=== PATIENT | female | born 1950 | race Caucasian/White ===

== ENCOUNTER → 2017-01-01 | Outpatient (CLI) | payer MEDICARE, MEDICAID | LOC: GT 08:29 | PROVIDERS: ATTEND Internal Medicine | DX: R27.8 Other lack of coordination (principal); E63.9 Nutritional deficiency, unspecified; G81.02 Flaccid hemiplegia affecting left dominant side; M62.50 Muscle wasting and atrophy, not elsewhere classified, unspecified site ==

== ENCOUNTER → 2017-01-13 | Outpatient (CLI) | payer MEDICARE, MEDICAID | END | disposition home or self-care (01) | LOC: GT 08:25 | PROVIDERS: ATTEND Internal Medicine | DX: R27.9 Unspecified lack of coordination (principal); D50.8 Other iron deficiency anemias; E63.9 Nutritional deficiency, unspecified ==

== ENCOUNTER → 2017-04-14 | Outpatient (CLI) | payer MEDICARE, MEDICAID | END | disposition home or self-care (01) | LOC: GT 08:23 | PROVIDERS: ATTEND Internal Medicine | DX: I69.998 Other sequelae following unspecified cerebrovascular disease (principal); R27.9 Unspecified lack of coordination; E08.65 Diabetes mellitus due to underlying condition with hyperglycemia; D50.9 Iron deficiency anemia, unspecified; E63.9 Nutritional deficiency, unspecified; E78.5 Hyperlipidemia, unspecified | CPT/HCPCS: 36415; 80053; 80061; 83036; 84443; 85025; P9603 ==

== ENCOUNTER → 2017-07-14 | Outpatient (CLI) | payer MEDICARE, MEDICAID | LOC: GT 05:40 | PROVIDERS: ATTEND Internal Medicine | DX: D50.8 Other iron deficiency anemias (principal); E08.65 Diabetes mellitus due to underlying condition with hyperglycemia; E78.5 Hyperlipidemia, unspecified; I10 Essential (primary) hypertension ==

== ENCOUNTER → 2017-10-06 | Outpatient (CLI) | payer MEDICARE, MEDICAID | END | disposition home or self-care (01) | LOC: GT 06:17 | PROVIDERS: ATTEND Internal Medicine | DX: I63.9 Cerebral infarction, unspecified (principal); I10 Essential (primary) hypertension; E08.65 Diabetes mellitus due to underlying condition with hyperglycemia ==

== ENCOUNTER → 2017-10-10 | Outpatient (CLI) | payer MEDICARE, MEDICAID | END | disposition home or self-care (01) | LOC: GT 09:39 | PROVIDERS: ATTEND Internal Medicine | DX: J11.2 Influenza due to unidentified influenza virus with gastrointestinal manifestations (principal) ==

== ENCOUNTER 2018-02-02 12:52 | Emergency (ER) | payer MEDICARE, MEDICAID ==
--- NOTE | 2018-02-02 13:59 | RAD ---
EXAM DESCRIPTION: Chest,1 View CLINICAL HISTORY: NG PLACEMENT COMPARISON: None available FINDINGS: Single AP view of the lung bases and upper abdomen shows an NG tube with its distal side port and tip in the proximal/mid stomach. Is a large amount of gas scattered throughout the colon. No dilated small bowel loops are identified. The lung bases are unremarkable. The heart is at the upper limits of normal size. IMPRESSION: NG tube in place with its distal tip and side-port in the proximal/mid stomach. Electronically signed by: Diony Eid MD 02/02/2018 1:58 PM CDT
--- NOTE | 2018-02-02 15:03 | ED.PDOC ---
History of Present Illness - General Chief Complaint: Abdominal Pain Stated Complaint: Abd distention Time Seen by Provider: 02/02/18 13:16 Source: patient Exam Limitations: no limitations - History of Present Illness Initial Comments: Patient presents with abdominal pain and bloating since this morning. She says she had the pain yesterday but the bloating and pain worsened this morning. She has had a normal appetite and denies N/V. She says that she has had diarrhea. Denies urinary symptoms. The patient is a poor historian and cannot describe the quality of the pain but indicates with her hands that it is generalized. No other complaints. Timing/Duration: other - on day Severity: moderate Improving Factors: nothing Worsening Factors: nothing Associated Symptoms: other - as in HPI Allergies/Adverse Reactions: Allergies NO KNOWN ALLERGY Allergy (Verified 09/08/15 05:44) Home Medications: Ambulatory Orders cefTRIAXone SODIUM [Rocephin] 1 gm IV DAILY #6 vial 02/02/18 Review of Systems - Review of Systems Constitutional: States: no symptoms reported EENTM: States: no symptoms reported Respiratory: States: no symptoms reported Cardiology: States: no symptoms reported Gastrointestinal/Abdominal: States: see HPI Genitourinary: States: no symptoms reported Musculoskeletal: States: no symptoms reported Skin: States: no symptoms reported Neurological: States: no symptoms reported Endocrine: States: no symptoms reported Hematologic/Lymphatic: States: no symptoms reported Past Medical History (General) - Patient Medical History Hx Seizures: No 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 Pt c/o slight abdominal discomfort. 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 nml as tested, no motor/sensory deficits, alert Skin Exam: normal color Lymphatic: no adenopathy Progress - Progress Progress: 02/02/18 18:11 Laboratory Tests 02/02/18 02/02/18 02/02/18 13:40 13:40 13:40 WBC 11.7 H RBC 5.35 Hgb 14.5 Hct 43.3 MCV 80.9 L MCH 27.1 MCHC 33.6 RDW 15.7 H Plt Count 187 MPV 8.0 Absolute Neuts (auto) 10.20 H Absolute Lymphs (auto) 0.90 L Absolute Monos (auto) 0.50 Absolute Eos (auto) 0.10 Absolute Basos (auto) 0.10 Neutrophils % 86.6 H Lymphocytes % 7.7 L Monocytes % 4.1 Eosinophils % 0.7 L Basophils % 0.9 Sodium 135 Potassium 3.5 L Chloride 99 L Carbon Dioxide 25 Anion Gap 14.5 BUN 23 H Creatinine 0.56 L BUN/Creatinine Ratio 41.1 H Random Glucose 185 H Serum Osmolality 278.6 Lactic Acid Calcium 9.6 Total Bilirubin 0.9 AST 27 ALT 23 Alkaline Phosphatase 104 Serum Total Protein 8.3 H Albumin 4.2 Globulin 4.1 H Albumin/Globulin Ratio 1.0 L Lipase 33 Urine Color Urine Appearance Urine pH Ur Specific [place] Urine Protein Urine Glucose (UA) Urine Ketones Urine Blood Urine Nitrite Urine Bilirubin Urine Urobilinogen Ur Leukocyte Esterase Urine RBC Urine WBC Ur Epithelial Cells Urine Bacteria Stool Occult Blood 02/02/18 02/02/18 02/02/18 14:52 15:41 17:54 WBC RBC Hgb Hct MCV MCH MCHC RDW Plt Count MPV Absolute Neuts (auto) Absolute Lymphs (auto) Absolute Monos (auto) Absolute Eos (auto) Absolute Basos (auto) Neutrophils % Lymphocytes % Monocytes % Eosinophils % Basophils % Sodium Potassium Chloride Carbon Dioxide Anion Gap BUN Creatinine BUN/Creatinine Ratio Random Glucose Serum Osmolality Lactic Acid 0.7 Calcium Total Bilirubin AST ALT Alkaline Phosphatase Serum Total Protein Albumin Globulin Albumin/Globulin Ratio Lipase Urine Color Yellow Urine Appearance Sl cloudy Urine pH 5.0 Ur Specific [place] >= 1.030 Urine Protein 30 Urine Glucose (UA) Negative Urine Ketones Trace Urine Blood Trace-intact H Urine Nitrite Positive H Urine Bilirubin Negative Urine Urobilinogen 0.2 Ur Leukocyte Esterase Small H Urine RBC 1-3 Urine WBC Tntc H Ur Epithelial Cells 1-3 Urine Bacteria 4+ H Stool Occult Blood Negative UA positive for urinary tract infection. CT showe mildly distended colon but no acute disease. NG tube was started upon arrival and there was mild to moderate symptomatic relief by patient report. Manual digital disimpaction attempt was made but there was no hard feces upon digital exam. There was no obstructing masses. A moderate amount of liquid feces was expressed and it tested negative for occult blood. Patient received Rocephin 1 gram IV x one for the UTI. There is a possiblity of developing urosepis with the 11.7 wbc and 86.7% neutrophils. The UTI, therefore, will be treated with Rocephin 1 gram IV qd x 6 days. Follow up with GI for colonoscopy instructed. Questions were elicited and answered. Patient and her family voiced understanding and agreement with the plan. Departure - Departure Clinical Impression: Abdominal pain, UTI (urinary tract infection) Disposition: Discharge to Home or Self Care Condition: Good Departure Forms: ED Discharge - Pt. Copy, Patient Portal Self Enrollment Instructions: DI for Abdominal Pain-Adult Diet: resume usual diet Activity: as per physical therapy Referrals: ZEENAT YOUNG [Primary Care Provider] - 1-2 Weeks Prescriptions: cefTRIAXone SODIUM [Rocephin] 1 gm IV DAILY #6 vial Home Medications: Ambulatory Orders cefTRIAXone SODIUM [Rocephin] 1 gm IV DAILY #6 vial 02/02/18 Additional Instructions: You will need to get a colonoscopy in the next two weeks. Rocephin 1 gram IV at the retirement every day as prescribed for a urinary tract infection. Return to the [facility] for increasing pain or fever.
[2018-02-02] MEDS ORDERED: cefTRIAXone SODIUM 1 GM in SODIUM CHL 0.9% 50ML MIN-BAG+ 50 ML IVPB ONE (15:14)
[2018-02-02] MEDS ORDERED: cefTRIAXone SODIUM 1 GM VIAL ONE (15:21)
[2018-02-02] MEDS ORDERED: SODIUM CHL 0.9% 50ML MIN-BAG+ 50 ML IVPB ONE (15:21)
--- NOTE | 2018-02-02 17:11 | CT ---
EXAM DESCRIPTION: Abdomen/Pelvis w/Contrast CLINICAL HISTORY:67 years Female, abdominal pain and bloating Comparison: None TECHNIQUE: Contiguous axial images of the abdomen and pelvis were obtained followed by reconstruction images. This exam was performed according to our departmental dose-optimization program, which includes automated exposure control, adjustment of the mA and/or kV according to patient size and/or use of iterative reconstruction technique. FINDINGS: Lung bases: Lung bases are clear. Heart: Visualized heart is within normal limits in size. Liver:Unremarkable. No focal liver lesion. Gallbladder:Unremarkable. No gallstones. No gallbladder wall thickening or pericholecystic fluid. Spleen:Unremarkable Pancreas: Pancreas is unremarkable. Adrenal glands:Unremarkable Kidneys/ureters:Left renal cysts. Otherwise kidneys are unremarkable. Bladder: Huddleston catheter terminates within the decompressed bladder Free fluid: No free fluid. Lymph nodes: No abnormal lymph nodes. Stomach/small bowel: Stomach is unremarkable. Small bowel is unremarkable. Enteric tube with tip terminating within the stomach. Colon: Nonspecific distention of the entire colon measuring up to 7 cm containing gas and fluid Appendix: No evidence of appendicitis Vascular structures: Atherosclerotic vascular calcifications. . Bones: No acute osseous abnormality. Soft tissues: Unremarkable. IMPRESSION: Mild nonspecific distention of the entire colon to the level of the rectum containing gas and fluid. No bowel inflammatory changes. Otherwise no acute intra-abdominal findings. Enteric tube with tip terminating within the stomach. Huddleston catheter in place. Electronically signed by: Shay Oneill MD 02/02/2018 5:10 PM CDT
[2018-02-02 18:37] VITALS: O2SAT 96
[2018-02-02 18:41] VITALS: BP 150/77; TEMP 97.5
== END 2018-02-02 18:52 | disposition home or self-care (01) ==
LOC: ER 12:52
DX: N39.0 Urinary tract infection, site not specified (principal); I69.328 Other speech and language deficits following cerebral infarction; I69.354 Hemiplegia and hemiparesis following cerebral infarction affecting left non-dominant side
CPT/HCPCS: 36415; 71045; 74177; 80053; 81001; 82270; 83605; 83690; 85025; 87040; 87086; 87088; 87186; J0696; J7050

== ENCOUNTER 2019-10-21 19:54 | Emergency (ER) | payer MEDICARE, MEDICAID ==
--- NOTE | 2019-10-21 20:01 | ED.PDOC ---
History of Present Illness - General Time Seen by Provider: 10/21/19 20:01 - History of Present Illness Initial Comments: Patient presents for evaluation of her throat being sore. She states that she had a pork chop for lunch and felt like something was stuck initially. Since minoo t time, it has passed. Now she feels like her throat is sore. She has no SOB, odynophagia, or difficulty tolerating secretions. She states that she has not had this happen before. She denies any new medications. 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, slow to slurred speech Hx Congestive Heart Failure: No Hx Hypertension: No Hx Diabetes: Yes - Vaccination History Hx Tetanus, Diphtheria Vaccination: No Hx Influenza Vaccination: No Hx Pneumococcal Vaccination: No - Social History Hx Alcohol Use: No Hx Substance Use: No Hx Substance Use Treatment: No Hx Depression: No - Female History Patient : No Family Medical History - Family History Mother Family History: Unknown Living Status: Physical Exam - Physical Exam General Appearance: Alert, Comfortable, No apparent distress, Well Developed, Well Groomed, Well Hydrated, Well Nourished Neck: full range of motion, supple Respiratory: lungs clear, normal breath sounds, no respiratory distress, no accessory muscle use Cardiovascular/Chest: regular rate, rhythm, no edema, no gallop Gastrointestinal/Abdominal: non tender, soft Progress - Progress Progress: Patient presented for evaluation of sore throat after having a piece of meat stuck earlier. She was tolerating secretions. She was not hypoxic. She tolerated water without difficulty. She was given GI cocktail which did help with soreness. Symptoms are likely from esophagitis from food impaction. Will plan for discharge with soft diet and protonix. Will follow-up with PCP for re- evaluation. Departure - Departure Clinical Impression: Esophagitis Time of Disposition: 21:43 Disposition: Discharge to Home or Self Care Condition: Fair Departure Forms: ED Discharge - Pt. Copy, Patient Portal Self Enrollment Instructions: Acid Reflux (Gastroesophageal Reflux Disease), Adult (DC), Dysphagia (DC) Diet: other - soft diet x 3 days Referrals: ZEENAT YOUNG [Primary Care Provider] - 1-2 Weeks Prescriptions: Pantoprazole Tablet [Protonix] 40 mg PO BID #10 tab Home Medications: Ambulatory Orders cefTRIAXone SODIUM [Rocephin] 1 gm IV DAILY #6 vial 02/02/18 Pantoprazole Tablet [Protonix] 40 mg PO BID #10 tab 10/21/19
[2019-10-21 21:21] VITALS: TEMP 97.6; O2SAT 94
[2019-10-21] MEDS ORDERED: LIDOCAINE HCL 2% (MOUTH-THROAT) 15 ML UD ONE (21:30)
[2019-10-21] MEDS ORDERED: ALUM & MAG HYDROX-SIMETHICONE 30 ML UD ONE (21:30)
[2019-10-21] MEDS: ALUM & MAG HYDROX-SIMETHICONE 30 ML, LIDOCAINE VISCOUS 2% 15 ML PO ONE ×2 (21:31)
[2019-10-21 22:31] VITALS: BP 119/69
== END 2019-10-21 22:10 | disposition home or self-care (01) ==
LOC: ER 19:54
DX: K20.9 Esophagitis, unspecified (principal); E11.9 Type 2 diabetes mellitus without complications; I69.354 Hemiplegia and hemiparesis following cerebral infarction affecting left non-dominant side; I69.328 Other speech and language deficits following cerebral infarction

== ENCOUNTER 2019-10-24 09:23 | Emergency (ER) | payer MEDICAID, MEDICARE ==
[2019-10-24] MEDS ORDERED: LIDOCAINE 1% 2 ML VIAL INJ ONE (09:42)
[2019-10-24] MEDS ORDERED: SODIUM CHLORIDE 0.9% (FLUSH) 10 ML SYG IV PRN (09:59)
--- NOTE | 2019-10-24 11:11 | RAD ---
EXAM: XR Chest, 1 View CLINICAL HISTORY: sob TECHNIQUE: Frontal view of the chest. COMPARISON: No relevant prior studies available. FINDINGS: Lungs: Mild basilar atelectasis present. Pleural space: Unremarkable. No pneumothorax. Heart: Unremarkable. No cardiomegaly. Mediastinum: Unremarkable. Bones/joints: Unremarkable. Tubes, lines and devices: Nasogastric tube has been removed. Other findings: Diffuse intestinal distention unchanged. IMPRESSION: 1. Mild basilar atelectasis present. 2. Diffuse intestinal distention unchanged. Electronically signed by: Rosemary Pacheco MD 10/24/2019 11:[address] [facility]
--- NOTE | 2019-10-24 11:25 | CT ---
EXAM DESCRIPTION: Head CLINICAL HISTORY: headaches COMPARISON: None available TECHNIQUE: Non contrast cranial CT with multiplanar reconstructions. FINDINGS: No acute intracranial hemorrhage, transcortical infarct, mass or mass effect. No intra or extra-axial fluid collection. No focal edema or midline shift. Mild generalized cerebral volume loss. No hydrocephalus. The [place]-white matter differentiation is intact. Small hypodensity within the right posterior basal ganglia/caudate body likely related to a remote lacunar infarct. Moderate periventricular and deep white matter hypodensities are nonspecific but likely related to chronic microvascular ischemic changes. No displaced calvarial fracture. There is complete opacification of the left maxillary sinus. Small bilateral mastoid effusions. Diffuse demineralization of the bones, likely on the basis of severe osteopenia. IMPRESSION: 1. No acute intracranial abnormality. 2. Moderate background white matter chronic microvascular ischemic changes. Remote lacunar infarct in the right basal ganglia/caudate body. 3. Complete opacification of the left maxillary sinus, small bilateral mastoid effusions. This exam was performed according to our departmental dose-optimization program, which includes automated exposure control, adjustment of the mA and/or kV according to patient size and/or use of iterative reconstruction technique. Electronically signed by: Marek Gruber DO 10/24/2019 11:23 AM [facility]
--- NOTE | 2019-10-24 11:41 | CT ---
EXAM DESCRIPTION: Soft Tissue Neck CLINICAL HISTORY: 69 years, Female, acute dysphagia and neck swelling COMPARISON: None TECHNIQUE: Multidetector helical CT with axial 3 mm scans and coronal and sagittal reconstructed images was obtained from the skull base to the aortic arch after administration of IV contrast. This exam was performed according to our departmental dose optimization program which includes use of automated exposure control, adjustment of the mA and/or kV according to patient size and/or use of iterative reconstruction technique. FINDINGS: Partially limited evaluation without intravenous contrast. A large food bolus is stuck within the hypopharynx and proximal aspect of the cervical esophagus measuring approximately 6-7 cm in length. There is circumferential thickening of the upper esophagus without definite mass.Evaluation for pharyngeal or esophageal diverticulum is limited on current examination, although no definite outpouching (separate from the hypopharynx/esophagus) to suggest a Zenker's diverticulum. Hypodense right thyroid nodule measures 2.2 cm. Subcentimeter left thyroid nodule. The oral pharynx and oral cavity including the floor of the mouth and tongue are unremarkable. The larynx and subglottic airways are unremarkable/patent. The parotid and submandibular glands are unremarkable. There is no evidence of pathologically enlarged lymph nodes. No acute osseous abnormality. Diffuse osteopenia. Degenerative change of the cervical spine.. IMPRESSION: Partially limited evaluation without intravenous contrast. 1. Large food bolus stuck within the hypopharynx and proximal aspect of the cervical esophagus measuring approximately 6-7 cm in length. Mild circumferential thickening of the upper esophagus without definite mass. Findings may be related to esophageal diverticulum or dysmotility. 2. Right thyroid 2.2 cm nodule. Further evaluation with thyroid ultrasound is recommended. Electronically signed by: Marek Gruber DO 10/24/2019 11:39 AM [facility]
--- NOTE | 2019-10-24 11:58 | ED.PDOC ---
History of Present Illness - General Chief Complaint: Respiratory Problem Stated Complaint: Cough, difficulty swallowing Time Seen by Provider: 10/24/19 09:59 - History of Present Illness Initial Comments: Yesterday night pt was eating meat in the supper and her food got stuck in the throat , having pain and difficulty in swallowing , she threw up once but still feel something has stuck in her throat , able to drink water . Timing/Duration: 24 hours Severity: moderate Improving Factors: nothing Worsening Factors: nothing Associated Symptoms: cough Allergies/Adverse Reactions: Allergies NO KNOWN ALLERGY Allergy (Verified 09/08/15 05:44) Home Medications: Ambulatory Orders cefTRIAXone SODIUM [Rocephin] 1 gm IV DAILY #6 vial 02/02/18 Pantoprazole Tablet [Protonix] 40 mg PO BID #10 tab 10/21/19 Review of Systems - Review of Systems Constitutional: States: no symptoms reported EENTM: States: see HPI, throat pain Respiratory: States: no symptoms reported Cardiology: States: no symptoms reported Gastrointestinal/Abdominal: States: see HPI Genitourinary: States: no symptoms reported Musculoskeletal: States: no symptoms reported Skin: States: no symptoms reported Neurological: States: no symptoms reported Endocrine: States: no symptoms reported Hematologic/Lymphatic: States: no symptoms reported Past Medical History (General) - Patient Medical History Hx Seizures: No 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 Hx Cardiac Disorders: Yes - Hyperlipidemia Hx Congestive Heart Failure: No Hx Hypertension: Yes Hx Diabetes: Yes Hx Gastroesophageal Reflux: Yes Hx MRSA: No - Vaccination History Hx Tetanus, Diphtheria Vaccination: No Hx Influenza Vaccination: - Unknown Hx Pneumococcal Vaccination: - Unknown - Social History Hx Alcohol Use: No Hx Substance Use: No Hx Substance Use Treatment: No Hx Depression: No - Activities of Daily Living Fpc/Assisted Living (if applicable):: [facility] - Female History Patient : No Family Medical History - Family History Mother Family History: Unknown Living Status: Physical Exam - Physical Exam General Appearance: Anxious Eye Exam: bilateral normal Ears, Nose, Throat: hearing grossly normal, normal ENT inspection Neck: non-tender, full range of motion, supple, normal inspection Respiratory: lungs clear, normal breath sounds, no respiratory distress, no accessory muscle use Cardiovascular/Chest: regular rate, rhythm Gastrointestinal/Abdominal: non tender, no organomegaly Back Exam: normal inspection, no CVA tenderness Extremity: normal range of motion, non-tender, normal inspection Neurologic: no motor/sensory deficits, alert, normal mood/affect, oriented x 3 Skin Exam: normal color, warm/dry Progress - Progress Progress: 10/24/19 12:42 Case d/w Dr Alexander E[facility] at [facility] agreed to admit the pt through ER - Results/Orders Results/Orders: 10/24/19 09:59 IV Care:Saline Lock per Protoc QSHIFT Telemetry .ONCE Sodium Chloride 0.9% (Flush) [Saline Flush Syringe] 10 ml IV PRN PRN 10/24/19 10:00 EKG STAT 10/24/19 10:06 Hold Metformin x 48Hrs [id number] Laboratory Results WBC 15.9 K/mm3 (4.8-10.8) H 10/24/19 10:05 RBC 4.76 M/mm3 (4.20-5.40) 10/24/19 10:05 Hgb 13.4 gm/dL (12.0-16.0) 10/24/19 10:05 Hct 40.4 % (36.0-47.0) 10/24/19 10:05 MCV 84.9 fl (81.0-99.0) 10/24/19 10:05 MCH 28.2 pg (27.0-31.0) 10/24/19 10:05 MCHC 33.2 g/dL (33.0-37.0) 10/24/19 10:05 RDW 15.2 % (11.5-14.5) H 10/24/19 10:05 Plt Count 187 K/mm3 (130-400) 10/24/19 10:05 MPV 9.0 fl (7.40-10.4) 10/24/19 10:05 Absolute Neuts (auto) 14.00 K/uL (1.8-6.8) H 10/24/19 10:05 Absolute Lymphs (auto) 0.80 K/uL (1.0-3.4) L 10/24/19 10:05 Absolute Monos (auto) 1.00 K/uL (0.2-0.8) H 10/24/19 10:05 Absolute Eos (auto) 0.00 K/uL (0.0-0.4) 10/24/19 10:05 Absolute Basos (auto) 0.10 K/uL (0.0-0.1) 10/24/19 10:05 Neutrophils % 87.8 % (42.0-78.0) H 10/24/19 10:05 Lymphocytes % 5.2 % (20.0-50.0) L 10/24/19 10:05 Monocytes % 6.3 % (2.0-9.0) 10/24/19 10:05 Eosinophils % 0.1 % (1.0-5.0) L 10/24/19 10:05 Basophils % 0.6 % (0.0-2.0) 10/24/19 10:05 Sodium 138 mmol/L (135-145) 10/24/19 10:05 Potassium 4.9 mmol/L (3.6-5.0) 10/24/19 10:05 Chloride 100 mmol/L (101-111) L 10/24/19 10:05 Carbon Dioxide 24 mmol/L (21-31) 10/24/19 10:05 Anion Gap 18.9 (12-18) H 10/24/19 10:05 BUN 68 mg/dL (7-18) H 10/24/19 10:05 Creatinine 2.20 mg/dL (0.6-1.3) H 10/24/19 10:05 BUN/Creatinine Ratio 30.9 (10-20) H 10/24/19 10:05 Random Glucose 187 mg/dL (70-105) H 10/24/19 10:05 Serum Osmolality 300.4 mOsm/L (275-295) H 10/24/19 10:05 Calcium 9.6 mg/dL (8.4-10.2) 10/24/19 10:05 Total Bilirubin 1.3 mg/dL (0.2-1.0) H 10/24/19 10:05 AST 15 IU/L (10-42) 10/24/19 10:05 ALT 14 IU/L (10-60) 10/24/19 10:05 Alkaline Phosphatase 69 IU/L (42-121) 10/24/19 10:05 Creatine Kinase 38 IU/L (26-140) 10/24/19 10:05 CK-MB (CK-2) 0.7 ng/mL (0.0-4.4) 10/24/19 10:05 CK-MB (CK-2) % Not Reportable 10/24/19 10:05 Troponin I < 0.02 ng/mL (0.01-0.05) 10/24/19 10:05 Serum Total Protein 7.8 gm/dL (6.4-8.2) 10/24/19 10:05 Albumin 4.4 g/dl (3.2-5.5) 10/24/19 10:05 Globulin 3.4 gm/dL (2.3-3.5) 10/24/19 10:05 Albumin/Globulin Ratio 1.3 (1.1-1.9) 10/24/19 10:05 - EKG/XRAY/CT EKG: Sinus, nonspecific ST T wave Chg Departure - Departure Clinical Impression: Dysphagia, Foreign body, Choking due to foreign body Disposition: Transfer to Hospital Departure Forms: ED Discharge - Pt. Copy, Patient Portal Self Enrollment Referrals: ZEENAT YOUNG [Primary Care Provider] - 1-2 Weeks Home Medications: Ambulatory Orders cefTRIAXone SODIUM [Rocephin] 1 gm IV DAILY #6 vial 02/02/18 Pantoprazole Tablet [Protonix] 40 mg PO BID #10 tab 10/21/19
[2019-10-24 14:06] VITALS: BP 121/68; TEMP 97.1; O2SAT 92
== END 2019-10-24 13:25 | disposition short-term general hospital (02) ==
LOC: ER 09:23
DX: T18.128A Food in esophagus causing other injury, initial encounter (principal); R13.10 Dysphagia, unspecified; I69.354 Hemiplegia and hemiparesis following cerebral infarction affecting left non-dominant side; E78.5 Hyperlipidemia, unspecified; K21.9 Gastro-esophageal reflux disease without esophagitis; E11.9 Type 2 diabetes mellitus without complications; I10 Essential (primary) hypertension

== ENCOUNTER → 2019-11-05 | Outpatient (CLI) | payer MEDICARE | LOC: GT 22:45 | PROVIDERS: ATTEND Internal Medicine | DX: N39.0 Urinary tract infection, site not specified (principal) ==

== ENCOUNTER → 2020-04-27 | Outpatient (CLI) | payer MEDICARE, MEDICAID | LOC: GT 06:43 | PROVIDERS: ATTEND Internal Medicine | DX: N39.0 Urinary tract infection, site not specified (principal) ==